=== PATIENT | female | born 1970 | race Caucasian/White ===

== ENCOUNTER 2017-12-26 05:26 | Day surgery (SDC) | payer MEDICARE, OTHER ==
[2017-12-24 12:30] LABS: HEMATOCRIT 41.3 % (36.0-47.0); HEMOGLOBIN 14.1 g/dL (12.0-15.5); MEAN CORPUSCULAR HEMOGLOBIN 30.6 pg (27.0-33.4); MEAN CORPUSCULAR HGB CONC 34.1 g/dL (32.0-36.0); MEAN CORPUSCULAR VOLUME 90 fl (80-97); PLATELET COUNT 304 10^3/uL (150-450); RED BLOOD COUNT 4.61 10^6/uL (3.72-5.28); RED CELL DISTRIBUTION WIDTH 13.1 % (11.5-14.0); WHITE BLOOD COUNT 6.7 10^3/uL (4.0-10.5)
[2017-12-24 12:35] LABS: APPEARANCE,URINE SLIGHTLY-CLOUDY; BILIRUBIN,URINE NEGATIVE (NEGATIVE); COLOR,URINE YELLOW; GLUCOSE, URINE NEGATIVE (NEGATIVE); KETONES,URINE TRACE mg/dL (NEGATIVE); LEUKOCYTE ESTERASE,URINE NEGATIVE (NEGATIVE); NITRITE,URINE NEGATIVE (NEGATIVE); PROTEIN,URINE NEGATIVE (NEGATIVE); URINE SPECIFIC GRAVITY 1.032; UROBILINOGEN,URINE NEGATIVE mg/dL (<2.0)
[2017-12-24 12:50] LABS: ANION GAP 9 (5-19); BLOOD UREA NITROGEN 23 mg/dL (7-20); CALCIUM 10.1 mg/dL (8.4-10.2); CARBON DIOXIDE 24 mmol/L (22-30); CHLORIDE 107 mmol/L (98-107); GLUCOSE 74 mg/dL (75-110); POTASSIUM 4.7 mmol/L (3.6-5.0); SODIUM 140.3 mmol/L (137-145)
[~2017-12-26 05:26] MED LIST: LACTATED RINGERS 1000 ML IV PRN; LIDOCAINE 0.5% INJ-PF (5 MG/ML) 50 ML SDV SUBCUT PRN
[2017-12-26] MEDS ORDERED: FENTANYL CITRATE INJ/PF 100 MCG/2 ML AMPUL ONE (06:51)
[2017-12-26] MEDS ORDERED: MIDAZOLAM 2 MG/2 ML INJ ONE (06:51)
[2017-12-26] MEDS ORDERED: ONDANSETRON HCL INJ/PF 4 MG/2 ML SDV ONE (06:52)
[2017-12-26] MEDS ORDERED: PROPOFOL INJ 200 MG/20 ML VIAL IV ONE (06:52)
[2017-12-26] MEDS ORDERED: LIDOCAINE 2% INJ-PF (20 MG/ML) 10 ML AMPUL ONE (07:07)
[2017-12-26] MEDS ORDERED: PROMETHAZINE HCL INJ 25 MG/1 ML VIAL IV PRN (07:44)
[2017-12-26] MEDS ORDERED: FENTANYL CITRATE INJ/PF 100 MCG/2 ML AMPUL IV PRN ×3 (07:44)
[2017-12-26] MEDS ORDERED: DIPHENHYDRAMINE HCL 50 MG/ML VIAL IV PRN (07:44)
[2017-12-26] MEDS: FENTANYL CITRATE INJ/PF 100 MCG/2 ML AMPUL ONE ×2 (08:05→08:10)
[2017-12-26] MEDS ORDERED: KETOROLAC TROMETHAMINE INJ/PF 30 MG/1 ML SDV ONE (08:07)
[2017-12-26] MEDS ORDERED: ACETAMINOPHEN 100 ML IV ONE (08:07)
[2017-12-26] MEDS ORDERED: OXYCODONE-ACETAMINOPHEN 5-325 MG TABLET PO PRN (08:20)
[2017-12-26] MEDS ORDERED: PROMETHAZINE HCL INJ 25 MG/1 ML VIAL IM PRN (08:21)
--- NOTE | 2017-12-26 08:44 | OPERATIVE REPORT E ---
Operative Report NAME: LUCY MARSHALL : 1970 AGE: 47Y DATE OF SURGERY: 12/26/2017 ROOM: PREOPERATIVE DIAGNOSES: PERIMENOPAUSAL BLEEDING ON PROGESTERONE FOR A NUMBER OF YEARS, RECENT PROGESTERONE SUPPRESSION, POSSIBLE ENDOMETRIAL LESION NOTED ON ULTRASOUND. POSTOPERATIVE DIAGNOSES: PERIMENOPAUSAL BLEEDING ON PROGESTERONE FOR A NUMBER OF YEARS, RECENT PROGESTERONE SUPPRESSION, POSSIBLE ENDOMETRIAL LESION NOTED ON ULTRASOUND. OPERATION: Hysteroscopic polypectomy. SURGEON: LELE MARCELO M.D. COMPLICATIONS: None. ANESTHESIA: General endotracheal. FINDINGS: Small right cornual endometrial polyp that was removed en toto, normal endometrial cavity is otherwise noted. No submucosal fibroids were appreciated. The endocervix was likewise normal on hysteroscopy. INDICATIONS FOR PROCEDURE: Patient had profuse profound abnormal bleeding unresponsive to outpatient management. She was noted to have been on progesterone for a number of years and was recently put on Progestin with some impact. Ultrasound demonstrated what appeared to be an endocervical lesion. Outpatient biopsy was benign. The usual risks including bleeding, infection, anesthesia, damage to organs or tissue was discussed with the patient and understood. PROCEDURE: The patient was taken to the operating room and placed in a modified lithotomy position. After adequate anesthesia was ascertained, she was prepped and draped for a hysteroscopy. The bladder was left undrained. EUA was performed. The cervix was dilated to admit an operative hysteroscope. Hysteroscopy ensued. A small endometrial polyp was noted in the right cornual area. MyoSure was deployed and polyp was removed in en toto. There was sampling of the anterior and posterior crouch of the uterus with the MyoSure device and tissue sent to Pathology. Patient procedure bleeding was nil. Instruments were removed and patient was taken to the recovery room in stable condition. DICTATING PHYSICIAN: LELE MARCELO M.D. [id number] PHY#: [id number] ID: [id number] JOB#: [id number] ACCT: [id number] cc:LELE MARCELO M.D. >
[2017-12-26 10:02] VITALS: BP 130/76
[2017-12-26] MEDS ORDERED: SUCCINYLCHOLINE CHLORIDE INJ 200 MG/10 ML VIAL ONE (10:50)
[2017-12-26] MEDS ORDERED: DEXAMETHASONE SOD PHOSPHATE INJ 4 MG/1 ML VIAL ONE (10:50)
[2017-12-26] MEDS ORDERED: IBUPROFEN 800 MG TABLET PO SCH (14:00)
== END 2017-12-26 09:55 | disposition home or self-care (01) ==
LOC: OROUT 05:26
PROVIDERS: ATTEND Specialist
DX: N92.4 Excessive bleeding in the premenopausal period (principal); J45.909 Unspecified asthma, uncomplicated; Z79.890 Hormone replacement therapy; Z88.0 Allergy status to penicillin; Z88.5 Allergy status to narcotic agent
CPT/HCPCS: 86900; 86901; 36415; 86850; 85027; 80048; 81001; 88305 ×2; 58558; J2250; J1100; J3010; J1885; A9270; J0330; J2405; J2704; J3490; J0131; 952